=== PATIENT | female | born 1965 ===

== ENCOUNTER → 2018-08-27 | Day surgery (SDC) | payer OTHER ==
[~2018-08-27] MED LIST: AMBIEN10 MG PO; CALCI PO; CATAFLAN PO; KETO10TA2 PO; SAVELLA50 MG PO; VITD PO; [UNRECOGNIZED DRUG - OTHER] PO
== END | disposition home or self-care (01) ==
LOC: ADM 08-26 11:15 → CIR.AMB 08-26 11:15
DX: M24.832 Other specific joint derangements of left wrist, not elsewhere classified (principal)
CPT/HCPCS: 25390; 29846; C1776

== ENCOUNTER 2020-09-07 06:00 | Day surgery (SDC) | payer OTHER ==
[~2020-09-07 06:00] MED LIST changes: +NORFLEX
== END 2020-09-07 14:20 | disposition home or self-care (01) ==
LOC: CIR.AMB 06:00
PROVIDERS: ATTEND Orthopaedic Surgery Hand Surgery
DX: S63.592A Other specified sprain of left wrist, initial encounter (principal); Z20.828 Contact with and (suspected) exposure to other viral communicable diseases